=== PATIENT | male | born 1950 | race Two or more races ===

== ENCOUNTER 2017-01-07 16:06 | Inpatient (IN) | payer MEDICARE, OTHER ==
[~2017-01-07] VITALS: Ht 160 cm; Wt 88.1 kg
[2017-01-07 17:03] LABS: BASOPHILS % (AUTO) 0.2 % (0.0-2.0); EOSINOPHILS # (AUTO) 0.5 /CMM (0.0-0.7); EOSINOPHILS % (AUTO) 9.6 % (0.0-6.0); HEMATOCRIT 36 % (39-51); HEMOGLOBIN 12.4 g/dL (13.5-17.5); LYMPHOCYTES # (AUTO) 1.7 /CMM (0.8-4.8); LYMPHOCYTES % (AUTO) 33.9 % (20.0-44.0); MEAN CORPUSCULAR HEMOGLOBIN 32 PG (26.0-33.0); MEAN CORPUSCULAR HGB CONC 34 g/dl (31.0-36.0); MEAN CORPUSCULAR VOLUME 94 fL (80-96); MONOCYTES # (AUTO) 0.5 /CMM (0.1-1.30); MONOCYTES % (AUTO) 9.6 % (2.0-12.0); NEUTROPHILS # (AUTO) 2.4 /CMM (1.8-8.9); NEUTROPHILS % (AUTO) 46.7 % (43.0-81.0); PLATELET COUNT (AUTO) 124 /CMM (150-450); RDW COEFFICIENT OF VARIATION 12.9 (11.5-15.0); RED BLOOD CELL COUNT(AUTO) 3.87 MIL/uL (4.5-6.0); WHITE BLOOD COUNT (AUTO) 5.1 K/uL (4.3-11.0)
[2017-01-07 17:13] LABS: APPEARANCE,URINE Clear (CLEAR); BILIRUBIN,URINE Negative (NEGATIVE); BLOOD, URINE Moderate Ery/uL (NEGATIVE); COLOR,URINE Yellow (YELLOW); KETONES,URINE Negative (NEGATIVE); LEUKOCYTE ESTERASE ,URINE Negative (NEGATIVE); NITRITE, URINE Negative (NEGATIVE); PH,URINE 5.5 (5.0-8.0); PROTEIN,URINE >=300 mg/dl (NEGATIVE); UGLUCOSE 500 MG/DL mg/dL (NEGATIVE); UROBILINOGEN,URINE 0.2 EU/dL (0.2)
[2017-01-07 17:28] LABS: ALANINE AMINOTRANSFERASE 49 U/L (12-78); ALBUMIN 3.4 g/dL (3.4-5.0); ALCOHOL, BLOOD 267 mg/dL (0-0); ALKALINE PHOSPHATASE 94 U/L (46-116); ASPARTATE AMINOTRANSFERASE 59 U/L (15-37); BILIRUBIN,DIRECT 0.1 mg/dL (0.0-0.2); BILIRUBIN,TOTAL 0.3 mg/dL (0.2-1.0); CARBON DIOXIDE 27 mmol/L (21-32); CHLORIDE 101 mmol/L (98-107); CREATININE 1.7 mg/dL (0.6-1.3); LIPASE 306 U/L (73-393); POTASSIUM 4.1 mmol/L (3.5-5.1); SERUM AMMONIA 9 umol/L (11-32); SODIUM SERUM 139 mmol/L (136-145); TOTAL PROTEIN, SERUM 7.6 g/dL (6.4-8.2); UREA NITROGEN, BLOOD 26 mg/dL (7-18)
[2017-01-07 17:30] LABS: BACTERIA,URINE Few /HPF (None Seen); SQUAMOUS EPITHELIAL CELL,UR Few /HPF (None Seen); WBC,URINE 0-2 /HPF (0-3)
[2017-01-07 17:31] LABS: SALICYLATE 1.6 mg/dL (2.8-20.0)
[2017-01-07 17:32] LABS: ACETAMINOPHEN < 2 ug/ml (10-30); GLUCOSE 360 mg/dL (74-106)
[2017-01-07] MEDS ORDERED: ATOR40TA PO (18:31)
[2017-01-07] MEDS ORDERED: GABA-534 PO (18:31)
[2017-01-07] MEDS ORDERED: INSU100V11 SQ (18:31)
[2017-01-07] MEDS ORDERED: INSU100I19 SQ (18:31)
[2017-01-07] MEDS ORDERED: ENAL20TA PO (18:31)
[2017-01-07] MEDS ORDERED: BLOO-668 IN (18:31)
[2017-01-07] MEDS ORDERED: TAMS-12 PO (18:31)
[2017-01-07] MEDS ORDERED: LEVO50TA8 PO (18:31)
[2017-01-07 22:00] VITALS: BP 138/72
[2017-01-08] VITALS (7 sets, daily range): BP systolic 101–139; BP diastolic 59–74
[2017-01-08 07:35] LABS: BASOPHILS % (AUTO) 0.3 % (0.0-2.0); EOSINOPHILS # (AUTO) 0.3 /CMM (0.0-0.7); EOSINOPHILS % (AUTO) 7.8 % (0.0-6.0); HEMATOCRIT 33 % (39-51); HEMOGLOBIN 11.3 g/dL (13.5-17.5); LYMPHOCYTES # (AUTO) 1.3 /CMM (0.8-4.8); LYMPHOCYTES % (AUTO) 31.4 % (20.0-44.0); MEAN CORPUSCULAR HEMOGLOBIN 32 PG (26.0-33.0); MEAN CORPUSCULAR HGB CONC 34 g/dl (31.0-36.0); MEAN CORPUSCULAR VOLUME 94 fL (80-96); MONOCYTES # (AUTO) 0.5 /CMM (0.1-1.30); MONOCYTES % (AUTO) 10.7 % (2.0-12.0); NEUTROPHILS # (AUTO) 2.1 /CMM (1.8-8.9); NEUTROPHILS % (AUTO) 49.8 % (43.0-81.0); PLATELET COUNT (AUTO) 115 /CMM (150-450); RDW COEFFICIENT OF VARIATION 13.5 (11.5-15.0); RED BLOOD CELL COUNT(AUTO) 3.55 MIL/uL (4.5-6.0); WHITE BLOOD COUNT (AUTO) 4.3 K/uL (4.3-11.0)
[2017-01-08 07:48] LABS: BILIRUBIN,TOTAL 0.4 mg/dL (0.2-1.0); CALCIUM, SERUM 7.7 mg/dL (8.5-10.1); CREATININE 1.4 mg/dL (0.6-1.3); MAGNESIUM 1.8 mg/dL (1.8-2.4); PHOSPHORUS 3.2 mg/dL (2.5-4.9); POTASSIUM 3.8 mmol/L (3.5-5.1); TOTAL PROTEIN, SERUM 6.6 g/dL (6.4-8.2)
[2017-01-08 07:53] LABS: IRON, SERUM 110 ug/dl (50-175); TOTAL IRON BINDING CAPACITY 222 ug/dl (250-450)
[2017-01-08 08:11] LABS: THYROID STIMULATING HORMONE 5.802 uIU/mL (0.358-3.74)
[2017-01-09 04:00] VITALS: BP 111/67
[2017-01-09 07:54] LABS: BASOPHILS % (AUTO) 0.6 % (0.0-2.0); CALCIUM, SERUM 7.7 mg/dL (8.5-10.1); CREATININE 1.3 mg/dL (0.6-1.3); EOSINOPHILS # (AUTO) 0.4 /CMM (0.0-0.7); EOSINOPHILS % (AUTO) 9.6 % (0.0-6.0); HEMATOCRIT 33 % (39-51); HEMOGLOBIN 11.2 g/dL (13.5-17.5); LYMPHOCYTES # (AUTO) 1.3 /CMM (0.8-4.8); LYMPHOCYTES % (AUTO) 31.3 % (20.0-44.0); MAGNESIUM 1.8 mg/dL (1.8-2.4); MEAN CORPUSCULAR HEMOGLOBIN 32 PG (26.0-33.0); MEAN CORPUSCULAR HGB CONC 34 g/dl (31.0-36.0); MEAN CORPUSCULAR VOLUME 95 fL (80-96); MONOCYTES # (AUTO) 0.3 /CMM (0.1-1.30); MONOCYTES % (AUTO) 8.7 % (2.0-12.0); NEUTROPHILS % (AUTO) 49.8 % (43.0-81.0); PHOSPHORUS 3.4 mg/dL (2.5-4.9); PLATELET COUNT (AUTO) 97 /CMM (150-450); POTASSIUM 4.3 mmol/L (3.5-5.1); RDW COEFFICIENT OF VARIATION 13.5 (11.5-15.0)
[2017-01-09 08:00] VITALS: BP 127/72
[2017-01-09 09:27] LABS: EOSINOPHILS % (MANUAL) 6 % (0-4); LYMPHOCYTES % (MANUAL) 27 % (16-48); MONOCYTES % (MANUAL) 6 % (0-11.0); NEUTROPHILS % (MANUAL) 61 (42-76)
[2017-01-09 16:00] VITALS: BP 122/75
[2017-01-09 16:49] VITALS: BP 122/75
[2017-01-09 20:00] VITALS: BP 167/93
[2017-01-10 04:00] VITALS: BP 133/90
== END 2017-01-10 13:45 | disposition home or self-care (01) | DRG 896 ==
LOC: ER 16:08 → TELE1 20:16 → MEDSG1 01-08 14:26
PROVIDERS: ADMIT Internal Medicine; ATTEND Internal Medicine
DX: F10.239 Alcohol dependence with withdrawal, unspecified (principal); N17.0 Acute kidney failure with tubular necrosis; E11.42 Type 2 diabetes mellitus with diabetic polyneuropathy; E11.65 Type 2 diabetes mellitus with hyperglycemia; F10.229 Alcohol dependence with intoxication, unspecified; E03.9 Hypothyroidism, unspecified; E66.9 Obesity, unspecified; E78.5 Hyperlipidemia, unspecified; K21.9 Gastro-esophageal reflux disease without esophagitis; F32.9 Major depressive disorder, single episode, unspecified; E86.9 Volume depletion, unspecified; F41.9 Anxiety disorder, unspecified; I10 Essential (primary) hypertension; N40.0 Benign prostatic hyperplasia without lower urinary tract symptoms; K43.9 Ventral hernia without obstruction or gangrene; K70.0 Alcoholic fatty liver; Z59.0 Homelessness; R91.1 Solitary pulmonary nodule; Z68.34 Body mass index [BMI] 34.0-34.9, adult; Y90.8 Blood alcohol level of 240 mg/100 ml or more
CPT/HCPCS: 36415; 71010-TC; 80048-TC; 80053-TC; 80061-TC; 80076-TC; 80305; 81000-TC; 82140-TC; 82962-TC; 83540-TC; 83690-TC; 83735-TC; 84100-TC; 84153-TC; 84443-TC; 85025-TC; 87081-TC; G0480; J1815; J2060; J2270; J2405; J3490